=== PATIENT | female | born 1990 | race Caucasian/White ===

== ENCOUNTER 2019-08-23 14:36 | Day surgery (SDC) | payer SELFPAY ==
[~2019-08-23 14:36] MED LIST: Dexamethasone 20 MG/5 ML VIAL ONE; Esmolol 100 MG/10 ML VIAL ONE; Glycopyrrolate 0.2 MG/ML 5 ML SYRINGE ONE; Lidocaine 1% PF 5 ML VIAL ONE; Ondansetron PF 4 MG/2 ML Vial ONE; PROPOFOL 200 MG/20 ML VIAL ONE; Rocuronium Bromide 10 MG/ML (10ML VIAL) ONE
[2019-08-23 16:04] LABS: BHCG - Serum Negative (NEGATIVE); Pregs Control Background? CLEAR/WHITE (CLR/WHITE); Pregs Control Bar Appear? YES (CONTROL BAR)
[2019-08-23] MEDS ORDERED: Sodium Chloride 0.9% 10 ML ONE (16:21)
[2019-08-23] MEDS ORDERED: Lidocaine 1% w/Epinephrine 1:100K 20 ML VIAL ONE (16:25)
[2019-08-23] MEDS ORDERED: Bupivacaine 0.25% HCL 30 ML VIAL ONE (16:25)
[2019-08-23] MEDS ORDERED: Fentanyl 100 MCG/2 ML VIAL ONE ×3 (16:32→18:56)
--- NOTE | 2019-08-23 17:27 | HP ---
HISTORY OF PRESENT ILLNESS: This is a 29-year-old woman, who presented to stand-alone emergency department today with 2-month history of epigastric, right upper quadrant abdominal pain, which is usually exacerbated by eating. The pain has become progressively worse and more frequent over the last three weeks. Over the last 24 hours, the pain is persistent, radiating to her back and right shoulder. The patient admits to some nausea, but no emesis. She denies any fevers or chills. PAST MEDICAL HISTORY: She denies any previous medical problems. PAST SURGICAL HISTORY: She has had no previous surgeries. SOCIAL HISTORY: She is a G0, P0, currently unemployed, but used to work in childcare business. She admits to moderate amount of ethanol occasionally, and smokes marijuana occasionally. She denies any cigarette smoking or other illicit drug abuse. FAMILY HISTORY: Notable for head and neck and lung cancer in mother and her father, both of them were heavy tobacco users. She denies any family history of diabetes mellitus, hypertension, or heart disease. CURRENT MEDICATIONS: None. ALLERGIES: THE PATIENT DENIES ANY KNOWN DRUG ALLERGIES. REVIEW OF SYSTEMS: Ten-point review of systems essentially unremarkable except as stated in past medical history and chief complaint. PHYSICAL EXAMINATION: GENERAL: This reveals a 29-year-old, normally developed woman, who is otherwise coherent and interactive and appears stated age. The patient is alert and oriented x3, appears to be in no acute distress at the time of my evaluation. HEENT: Reveals normocephalic and atraumatic. Pupils are equally round and reactive to light and accommodation. Extraocular muscles are intact bilaterally. There is no scleral icterus present. HEART: Reveals regular rate and rhythm. No murmurs or gallops auscultated. LUNGS: Clear to auscultation bilaterally. Her breathing is regular and nonlabored. ABDOMEN: Soft with right upper quadrant tenderness to palpation. There is positive Woodson sign. Liver and spleen are nonpalpable below costal margin. EXTREMITIES: Reveals 2+ radial and pedal pulses bilaterally. No ankle edema is present. NEUROLOGIC: Reveals no focal deficits present. LABORATORY DATA: Accompanying laboratory studies include a negative test, urinalysis is essentially unremarkable. Metabolic profile includes AST and ALT both normal at 28 and 9 respectively. Total bilirubin is 0.8. CBC with 8300 white blood cells, hemoglobin and hematocrit are 14.1 and 41.4 respectively. Platelet count is 288,000. I have personally reviewed the accompanying abdominal ultrasound, which is remarkable for 2 mm solitary stone within the gallbladder lumen. Common bile duct is normal in diameter for the patient's age at 3 mm. The gallbladder wall is thickened at 5 mm. There is no pericholecystic fluid present. IMPRESSION: Acute on chronic cholecystitis with cholelithiasis. PLAN: Laparoscopic cholecystectomy. Above findings and plan have been discussed with the patient in the presence of her nurse. I have advised the patient of the risks and benefits of the proposed surgery to include, but not limited to bleeding, infection, injury to bile duct or surrounding structures. The patient indicates understanding of the information given. I have answered her questions. The patient is going to consent for this admission and surgical intervention. Job ID: [id number]
[2019-08-23] MEDS ORDERED: Ondansetron PF 4 MG/2 ML Vial ONE (18:43)
--- NOTE | 2019-08-24 00:47 | OP ---
DATE OF PROCEDURE: 08/23/2019 PREOPERATIVE DIAGNOSES: [id number] cholecystitis with cholelithiasis. POSTOPERATIVE DIAGNOSES: [id number] cholecystitis with cholelithiasis. PROCEDURE PERFORMED: Laparoscopic cholecystectomy. ANESTHESIA: General endotracheal. ESTIMATED BLOOD LOSS: 10 mL. FLUIDS GIVEN: 1000 mL crystalloids. COUNTS: Sponge and instrument counts were verified as correct x2. COMPLICATIONS: None apparent at the time of operation. INDICATIONS FOR OPERATION: This is a 29-year-old woman with 2-month history of recurrent epigastric to right upper quadrant abdominal pain, which is exacerbated by eating. Pain has become progressively worse over the last 3 weeks and persistent in the right upper quadrant over the last 3 days, radiating to the back and right shoulder. Clinical radiographic examination was consistent with acute cholecystitis and cholelithiasis for which the patient was brought to the operating room for cholecystectomy. Findings are consistent with markedly dilated thick-walled gallbladder in the usual anatomic location completely encased by omental adhesions. DESCRIPTION OF PROCEDURE: Informed consent was obtained from the patient, who was brought to the operating room and placed in supine position. Following general anesthesia, abdomen was sterilely prepped and draped in usual fashion. The skin below the umbilicus was infiltrated with 0.25% Marcaine with epinephrine. A small curvilinear infraumbilical incision was made using 11 scalpel. Umbilical stalk grasped with Ethan and elevated. Veress needle was inserted through the incision and placed in the peritoneal cavity through which the abdomen was insufflated with 3 L of CO2 gas. Intraabdominal pressure noted at 1 mmHg. Following abdominal insufflation, Veress needle was removed. A 5 mm trocar introduced using a Visiport under laparoscopy. Laparoscopy confirmed proper placement of the port. No injuries to underlying structures. Additional laparoscopy revealed the right upper quadrant completely encased by omental adhesions. Under direct laparoscopy, a 12 mm epigastric and two 5 mm right lateral subcostal ports were placed after the overlying skin were infiltrated with 0.25% Marcaine with epinephrine. Appropriate incision was made. The patient was placed in a reverse Trendelenburg position, rotated to her left. I introduced a [place] dissector with cautery using this to take down omental adhesions off the edge of the liver to expose thick-walled gallbladder. I then introduced a SOLOige grasper through the right lateral subcostal port, attempted to grasp the fundus of the gallbladder, which was markedly distended and taut. I decided to decompress the gallbladder. I achieved this using an Endo suction catheter with cautery. Cholecystotomy was made at the dome of the gallbladder, evacuating excess white bile. The Prestige grasper was then applied at the fundus, which was elevated cephalad. Omental adhesions were then bluntly dissected off the remainder of the gallbladder. A second Prestige grasper introduced through right medial subcostal port grasping the Laurie pouch, which was retracted laterally. The node of Calot was noted. The peritoneum of the gallbladder was opened at the gallbladder neck using [place] dissector. The node of Calot was bluntly dissected off the remainder of the structures and critical view of the cystic duct and artery were obtained. The common bile duct was not visualized. The cystic duct was dissected free from surrounding structures and divided between clips right at the gallbladder. Two clips were applied proximally and 1 clip at the junction of the cystic duct and gallbladder. Cystic artery was also dissected free from surrounding structures there and divided between clips in a similar fashion. The gallbladder was removed from the liver bed using cautery with good hemostasis. This was delivered off the abdominal cavity using an EndoCatch. Operative site was inspected for good hemostasis. All clips remained in place. No bile stains present. Finding, no other pathology. Laparoscopy was terminated. The fascia of the epigastric port was closed using 0 Vicryl suture and Endo Close device under laparoscopy. The abdomen was desufflated. All ports and instruments removed and accounted for. Skin incisions were closed using 4-0 Monocryl suture in subcuticular fashion. Dermabond was applied over incisional closure. The patient tolerated the operation without any apparent complication and was returned to recovery room in satisfactory condition. Job ID: [id number]
== END 2019-08-23 19:38 | disposition home or self-care (01) ==
LOC: SDC 14:36
PROVIDERS: ATTEND Surgery
PROC: 0FT44ZZ Resection of Gallbladder, Percutaneous Endoscopic Approach (ICD-10-PCS; principal; 2019-08-23)
DX: K80.12 Calculus of gallbladder with acute and chronic cholecystitis without obstruction (principal); K66.0 Peritoneal adhesions (postprocedural) (postinfection)
CPT/HCPCS: 84703; 88304; J0690; J1100; J2001; J2405; J2704; J3010; S0020